=== PATIENT | male | born 1940 | race African-American/Black ===

== ENCOUNTER 2019-11-22 07:11 | Emergency (ER) | payer OTHER, MEDICARE ==
[~2019-11-22] VITALS: Ht 185.4 cm; Wt 104.0 kg
[2019-11-22 07:35] VITALS: BP 180/95
[2019-11-22] MEDS ORDERED: IBUPROFEN 800MG TABLET PO ONE (08:00)
[2019-11-22] MEDS ORDERED: ACETAMINOPHEN WITH CODEINE 300/30MG TABLET PO ONE (08:00)
[2019-11-22] MEDS ORDERED: TETANUS, DIPHTHERIA, PERTUSSIS VAC/PF 0.5ML (>7YR OLD) IM ONE (08:00)
== END 2019-11-22 23:39 | disposition home or self-care (01) ==
LOC: ER 07:11
DX: S61.032A Puncture wound without foreign body of left thumb without damage to nail, initial encounter (principal); I10 Essential (primary) hypertension; Z98.890 Other specified postprocedural states; X58.XXXA Exposure to other specified factors, initial encounter; Y93.89 Activity, other specified; Y92.89 Other specified places as the place of occurrence of the external cause; Y99.8 Other external cause status
CPT/HCPCS: 90471; 90715; 99283